=== PATIENT | male | born 1980 | race Caucasian/White ===

== ENCOUNTER 2017-08-14 12:15 | Emergency (ER) | payer OTHER ==
[2017-08-14 12:29] VITALS: BP 144/91
--- NOTE | 2017-08-14 13:00 | ED Physician Documentation ---
PD HPI OPHTHO - Stated complaint Stated Complaint: L EYE INJ - Chief complaint Chief Complaint: Heent - History obtained from History obtained from: Patient - History of Present Illness Timing - onset: Today Timing - details: Abrupt onset Location: Left Quality / character: Other (he was working with pry tool that came loose and came back and struck left eye. He had glasses on but it curved over the top of those.) Associated symptoms: Redness (some red spots on eye where impact occurred.), FB sensation. No: Loss of vision Contributing factors: Blunt trauma, Work related Similar symptoms before: Has not had sx before Recently seen: Not recently seen Review of Systems Eyes: reports: Irritation. denies: Loss of vision, Decreased vision, Photophobia Skin: denies: Abrasion (s), Laceration (s) PD PAST MEDICAL HISTORY - Past Medical History Cardiovascular: None Respiratory: None Neuro: None - Present Medications Home Medications: Ambulatory Orders Medication Instructions Recorded Confirmed No Known Home Medications [No 08/14/17 08/14/17 Known Home Medications] - Allergies Allergies/Adverse Reactions: Allergies Allergy/AdvReac Type Severity Reaction Status Date / Time No Known Drug Allergies Allergy Verified 08/14/17 12:22 PD ED PE NORMAL - Vitals Vital signs reviewed: Yes - General General: Alert and oriented X 3, No acute distress, Well developed/nourished - HEENT HEENT: PERRL, EOMI PD ED PE EXPANDED - Eyes Eyes: Conj/sclera FB (small specks of dirt on eye, that remove easily with qtip. ), Subconj hemorrhage (small ones left upper eye. There is also a small defect of thin layer of conjunctiva with some dye uptake at that area. No bleeding from the site. ), Anterior chambers clear, Normal fundi. No: Eyelid injury Results - Vitals Vitals: Oxygen O2 Source Room air PD MEDICAL DECISION MAKING - ED course Complexity details: considered differential (small specks of dbris on eye that remove with just qtip. Has mild superficial layer tear and some small hemorrhages. ), d/w patient Departure - Departure Disposition: 01 Home, Self Care Clinical Impression: Corneal abrasion, left Qualifiers: Encounter type: initial encounter Qualified Code(s): S05.02XA - Injury of conjunctiva and corneal abrasion without foreign body, left eye, initial encounter Subconjunctival hemorrhage Qualifiers: Laterality: left Qualified Code(s): H11.32 - Conjunctival hemorrhage, left eye Condition: Stable Record reviewed to determine appropriate education?: Yes Instructions: ED Eye Injury Corneal Abrasion, ED Eye Injury Subconj Hemorrhage Follow-Up: Aly Choi MD [Provider Admit Priv/Credential] - Comments: Normal activity is okay. Use the sulfamide antibiotic eye drops 4 times a day for the next few days while the injury is healing. Recheck with business operations specialist if it does not feel completely normal over the next couple of days. No follow- up needed necessarily if it feels fine and appears fine over couple of days. Discharge Date/Time: 08/14/17 13:28
[2017-08-14] MEDS ORDERED: SULFACETAMIDE 10% OPHTH DROPS LEFTEYE STA (13:20)
== END 2017-08-14 13:28 | disposition home or self-care (01) ==
LOC: ED 12:15
DX: S05.02XA Injury of conjunctiva and corneal abrasion without foreign body, left eye, initial encounter (principal); H11.32 Conjunctival hemorrhage, left eye; W22.8XXA Striking against or struck by other objects, initial encounter; Y99.0 Civilian activity done for income or pay
CPT/HCPCS: 1040M; 99282; 99283; A9270